=== PATIENT | female | born 1985 | race Caucasian/White ===

== ENCOUNTER 2022-04-08 17:46 | Emergency (ER) | payer SELFPAY ==
[2022-04-08] MEDS ORDERED: IBUPROFEN 200 MG TAB PO ONE (18:41)
--- NOTE | 2022-04-08 19:14 | RAD REPORT ---
EXAM DESCRIPTION: RAD - Humerus Right - 04/08/2022 7:02 pm CLINICAL HISTORY: Pain COMPARISON: None FINDINGS/IMPRESSION: No acute fracture. No malalignment. No significant focal degenerative changes.
--- NOTE | 2022-04-08 19:14 | RAD REPORT ---
EXAM DESCRIPTION: RAD - Shoulder Right 2 View - 04/08/2022 7:02 pm CLINICAL HISTORY: Pain COMPARISON: No comparisons FINDINGS/IMPRESSION: No acute fracture. No malalignment. No significant focal degenerative changes.
--- NOTE | 2022-04-08 19:20 | ER ---
Nurse's Notes [facility] Name: Grace Nava Age: 37 yrs Sex: Female : 1985 Arrival Date: 04/08/2022 Time: 17:47 Bed DX3 Private MD: Diagnosis: Other sprain of right shoulder joint;Contusion of right upper arm;Fall on same level from slipping, tripping and stumbling with subsequent striking against object Presentation: 04/08 18:04 Chief complaint: Patient states: i fell down 4 steps, they were slick hurt right arm ko1 and shoulder. Coronavirus screen: At this time, the client does not indicate any symptoms associated with coronavirus-19. Ebola Screen: No symptoms or risks identified at this time. Initial Sepsis Screen: Does the patient meet any 2 criteria? No. Patient's initial sepsis screen is negative. Does the patient have a suspected source of infection? No. Patient's initial sepsis screen is negative. Risk Assessment: Do you want to hurt yourself or someone else? Patient reports no desire to harm self or others. Onset of symptoms was April 08, 2022. 18:04 Method Of Arrival: Ambulatory ko1 18:04 Acuity: ANGELITO 3 ko1 Triage Assessment: 18:05 General: Appears in no apparent distress. uncomfortable, Behavior is calm, cooperative, ko1 appropriate for age. Pain: Complains of pain in right upper arm and shoulder. Musculoskeletal: Reports pain in right shoulder/arm. Injury Description: fall. Historical: - Allergies: 18:05 PENICILLINS; ko1 18:05 Zyrtec; ko1 - Immunization history:: Adult Immunizations up to date. - Social history:: Smoking status: Patient denies any tobacco usage or history of. Screenin:15 [facility] ED Fall Risk Assessment (Adult) History of falling in the last 3 months, ss including since admission No falls in past 3 months (0 pts). Abuse screen: Denies threats or abuse. Denies injuries from another. Nutritional screening: No deficits noted. Tuberculosis screening: No symptoms or risk factors identified. Never had TB. Assessment: 18:15 General: Appears in no apparent distress. comfortable, Behavior is calm, cooperative. ss Pain: Complains of pain in posterior aspect of right shoulder Pain currently is 5 out of 10 on a pain scale. Neuro: Level of Consciousness is awake, alert, obeys commands. Cardiovascular: Capillary refill < 3 seconds is brisk in bilateral fingers Patient's skin is warm and dry. Respiratory: Airway is patent Respiratory effort is even, unlabored, Respiratory pattern is regular, symmetrical. Derm: Skin is intact, is healthy with good turgor, Skin is pink, warm \T\ dry. normal. Musculoskeletal: Circulation, motion, and sensation intact. Range of motion:. Vital Signs: 18:04 BP 100 / 70; Pulse 93; Resp 18; Temp 97.7; Pulse Ox 98% ; Weight 63.5 kg; Height 5 ft. ko1 8 in. (172.72 cm); Pain 5/10; 18:04 Body Mass Index 21.29 (63.50 kg, 172.72 cm) ko1 ED Course: 17:47 Patient arrived in ED. am2 18:05 Triage completed. ko1 18:05 Arm band placed on left wrist. Patient placed in waiting room, Patient notified of wait ko1 time. 18:06 Katie Sanderson FNP-C is PHCP. snw 18:07 Los Santiago MD is Attending Physician. snw 18:15 Patient has correct armband on for positive identification. ss 18:15 No provider procedures requiring assistance completed. ss 19:00 Torrie Moreno RN is Primary Nurse. ss 19:04 Humerus Right XRAY In Process Unspecified. EDMS 19:04 Shoulder Right (2 View) XRAY In Process Unspecified. EDMS 19:11 Primary Nurse role handed off by Torrie Moreno RN mw2 19:13 Sling applied to right arm. ss 19:37 Patient did not have IV access during this emergency room visit. vc1 Administered Medications: 18:39 Drug: Motrin (ibuprofen) 600 mg Route: PO; ss 19:00 Follow up: Response: No adverse reaction ss Medication: 18:15 VIS not applicable for this client. ss Outcome: 19:19 Discharge ordered by . snw 19:36 Discharged to home ambulatory. vc1 19:36 Condition: good 19:36 Discharge instructions given to patient, Instructed on discharge instructions, follow up and referral plans. medication usage, Demonstrated understanding of instructions, follow-up care, medications, Prescriptions given X 2. 19:37 Patient left the ED. vc1 Signatures: Dispatcher [employer] EDMS Katie Sanderson, ANIMAL CAREGIVER-C ANIMAL CAREGIVER-Csnw Torrie Moreno, RN RN ss Palmira Barbour am2 Emmett Matamoros mw2 Paige Borjas RN RN vc1 Roma Colindres RN RN ko1
--- NOTE | 2022-04-08 19:20 | EDPHYS ---
Physician Documentation [facility] Name: Grace Nava Age: 37 yrs Sex: Female : 1985 Arrival Date: 04/08/2022 Time: 17:47 Bed DX3 Private MD: ED Physician Los Santiago HPI: 04/08 18:13 This 37 yrs old Female presents to ER via Ambulatory with complaints of Arm Injury, snw Fall Injury. 18:13 The patient or guardian complains of injury, tenderness. The complaints affect the snw posterior aspect of right shoulder and right tricep. Context: The problem was sustained outdoors, resulted from a fall, slipped down 4 stairs. Onset: The symptoms/episode began/occurred acutely. Severity of symptoms: At their worst the symptoms were moderate. The patient has experienced a previous episode, many years ago. no LOC, no lacerations. Historical: - Allergies: 18:05 PENICILLINS; ko1 18:05 Zyrtec; ko1 - Immunization history:: Adult Immunizations up to date. - Social history:: Smoking status: Patient denies any tobacco usage or history of. ROS: 18:15 Constitutional: Negative for fever, chills, and weight loss, Eyes: Negative for injury, snw pain, redness, and discharge, ENT: Negative for injury, pain, and discharge, Neck: Negative for injury, pain, and swelling, Cardiovascular: Negative for chest pain, palpitations, and edema, Respiratory: Negative for shortness of breath, cough, wheezing, and pleuritic chest pain, Back: Negative for injury and pain, : Negative for injury, bleeding, discharge, and swelling, Skin: Negative for injury, rash, and discoloration, Neuro: Negative for headache, weakness, numbness, tingling, and seizure. 18:15 MS/extremity: Positive for injury or acute deformity, decreased range of motion, pain, of the right bicep. Exam: 18:12 Constitutional: This is a well developed, well nourished patient who is awake, alert, snw and in no acute distress. Head/Face: Normocephalic, atraumatic. Eyes: Pupils equal round and reactive to light, extra-ocular motions intact. Lids and lashes normal. Conjunctiva and sclera are non-icteric and not injected. Cornea within normal limits. Periorbital areas with no swelling, redness, or edema. ENT: Nares patent. No nasal discharge, no septal abnormalities noted. Tympanic membranes are normal and external auditory canals are clear. Oropharynx with no redness, swelling, or masses, exudates, or evidence of obstruction, uvula midline. Mucous membranes moist. Neck: Trachea midline, no thyromegaly or masses palpated, and no cervical lymphadenopathy. Supple, full range of motion without nuchal rigidity, or vertebral point tenderness. No Meningismus. Chest/axilla: Normal chest wall appearance and motion. Nontender with no deformity. No lesions are appreciated. Cardiovascular: Regular rate and rhythm with a normal S1 and S2. No gallops, murmurs, or rubs. Normal PMI, no JVD. No pulse deficits. Respiratory: Lungs have equal breath sounds bilaterally, clear to auscultation and percussion. No rales, rhonchi or wheezes noted. No increased work of breathing, no retractions or nasal flaring. Abdomen/GI: Soft, non-tender, with normal bowel sounds. No distension or tympany. No guarding or rebound. No evidence of tenderness throughout. Back: No spinal tenderness. No costovertebral tenderness. Full range of motion. Skin: Warm, dry with normal turgor. Normal color with no rashes, no lesions, and no evidence of cellulitis. Neuro: Awake and alert, GCS 15, oriented to person, place, time, and situation. Cranial nerves II-XII grossly intact. Motor strength 5/5 in all extremities. Sensory grossly intact. Cerebellar exam normal. Normal gait. Psych: Awake, alert, with orientation to person, place and time. Behavior, mood, and affect are within normal limits. 18:12 Musculoskeletal/extremity: Extremities: grossly normal except: noted in the right humerus area and right midline shoulder: contusion, decreased ROM, tenderness, ROM: limited active range of motion due to pain, in the right shoulder, limited passive range of motion due to pain, Circulation is intact in all extremities. Sensation intact. Vital Signs: 18:04 BP 100 / 70; Pulse 93; Resp 18; Temp 97.7; Pulse Ox 98% ; Weight 63.5 kg; Height 5 ft. ko1 8 in. (172.72 cm); Pain 5/10; 18:04 Body Mass Index 21.29 (63.50 kg, 172.72 cm) ko1 MDM: 18:07 Patient medically screened. snw 19:03 Differential diagnosis: dislocation, closed fracture, contusion, tendonitis. Data snw reviewed: vital signs, nurses notes, radiologic studies, plain films. Independent interpretation of the following test(s) in the Emergency Department X-Ray: My interpretation is negative for acute fracture. 04/08 18:12 Order name: Humerus Right XRAY; Complete Time: 19:18 snw 04/08 18:12 Order name: Shoulder Right (2 View) XRAY; Complete Time: 19:18 snw 04/08 18:13 Order name: Sling; Complete Time: 19:00 snw Administered Medications: 18:39 Drug: Motrin (ibuprofen) 600 mg Route: PO; ss 19:00 Follow up: Response: No adverse reaction ss Disposition Summary: 04/08/22 19:19 Discharge Ordered Location: Home snw Condition: Stable snw Diagnosis - Other sprain of right shoulder joint snw - Contusion of right upper arm snw - Fall on same level from slipping, tripping and stumbling with subsequent striking snw against object Followup: snw - With: Emergency Department - When: As needed - Reason: Worsening of condition Followup: snw - With: Private Physician - When: 2 - 3 days - Reason: Recheck today's complaints, Continuance of care, Re-evaluation by your physician Discharge Instructions: - Discharge Summary Sheet snw - Contusion snw - Head Injury, Adult snw - Fall Prevention in the Home, Adult snw - Shoulder Pain snw - Shoulder Range of Motion Exercises snw - Shoulder Sprain snw - How to Use a Sling snw Forms: - Medication Reconciliation Form snw - Thank You Letter snw - Work release form snw - Antibiotic Education snw - Prescription Opioid Use snw Prescriptions: - Tramadol 50 mg Oral Tablet - take 1 tablet by ORAL route every 8 hours as needed; 12 tablet; Refills: 0, snw Product Selection Permitted - orphenadrine citrate 100 mg Oral Tablet Sustained Release - take 1 tablet by ORAL route 2 times per day As needed; 20 tablet; Refills: 0, snw Product Selection Permitted Signatures: Dispatcher [employer] Katie Stewart FNP-C SUPERVISOR TUMBLERS-Csnw Torrie Moreno, RN RN ss Roma Colindres, RN RN ko1
[2022-04-08 19:51] VITALS: BP 100/70; TEMP 97.7; O2SAT 98
== END 2022-04-08 19:37 | disposition home or self-care (01) ==
LOC: ER 17:46
DX: S43.491A Other sprain of right shoulder joint, initial encounter (principal); S40.021A Contusion of right upper arm, initial encounter; W01.10XA Fall on same level from slipping, tripping and stumbling with subsequent striking against unspecified object, initial encounter; Z88.0 Allergy status to penicillin; Z88.8 Allergy status to other drugs, medicaments and biological substances
CPT/HCPCS: 99284

== ENCOUNTER 2023-01-02 15:03 | Emergency (ER) | payer SELFPAY ==
--- NOTE | 2023-01-02 15:22 | EDPHYS ---
Physician Documentation [facility] Name: Grace Nava Age: 37 yrs Sex: Female : 1985 Arrival Date: 01/02/2023 Time: 15:03 Bed DX4 Private MD: ED Physician Los Santiago HPI: 01/02 15:20 This 37 yrs old Female presents to ER via Ambulatory with complaints of Suture Removal. [facility] 15:20 The patient has sutures on the Right hand. Previous treatment: the care was rendered at [facility] another emergency department, in [place], Treatment type: The patient's original treatment included sutures. Sutures/kandi progress: The patient has no c/o's. The wound is well-healing with no redness, swelling, discharge, or dehiscence reported. Patient presents for suture removal for laceration of right hand.. Historical: - Allergies: 15:20 PENICILLINS; ll1 15:20 Zyrtec; ll1 - Immunization history:: Adult Immunizations up to date. - Social history:: Smoking status: Patient denies any tobacco usage or history of. ROS: 15:20 Constitutional: Negative for fever, chills, and weight loss, Eyes: Negative for injury, [facility] pain, redness, and discharge, Cardiovascular: Negative for chest pain, palpitations, and edema, Respiratory: Negative for shortness of breath, cough, wheezing, and pleuritic chest pain, MS/Extremity: Negative for injury and deformity, Neuro: Negative for headache, weakness, numbness, tingling, and seizure, 15:20 Skin: Positive for Healing laceration of right hand, 15:20 All other systems are negative, Exam: 15:20 Constitutional: This is a well developed, well nourished patient who is awake, alert, [facility] and in no acute distress. Head/Face: Normocephalic, atraumatic. Cardiovascular: Regular rate and rhythm with a normal S1 and S2. No gallops, murmurs, or rubs. Normal PMI, no JVD. No pulse deficits. Respiratory: Lungs have equal breath sounds bilaterally, clear to auscultation and percussion. No rales, rhonchi or wheezes noted. No increased work of breathing, no retractions or nasal flaring. Abdomen/GI: Soft, non-tender, with normal bowel sounds. No distension or tympany. No guarding or rebound. No evidence of tenderness throughout. MS/ Extremity: Pulses equal, no cyanosis. Neurovascular intact. Full, normal range of motion. Neuro: Awake and alert, GCS 15, oriented to person, place, time, and situation. Motor strength 5/5 in all extremities. Sensory grossly intact. Normal gait. 15:20 Skin: Wound recheck: Suture laceration closure: the wound is healing well, the edges are well approximated, 9 intact sutures in the right palmar aspect of the hand extending to the fifth digit, Procedures: 15:26 Suture/Staple removal: Removed 9 sutures, from right hand, site appears well healed, jh7 dressed with band aid, Patient tolerated well. MDM: 15:08 Patient medically screened. [facility] 15:26 Data reviewed: vital signs, nurses notes. [facility] 15:26 Counseling: I had a detailed discussion with the patient and/or guardian regarding the [facility] historical points, exam findings, and any diagnostic results supporting the discharge/admit diagnosis, to return to the emergency department if symptoms worsen or persist or if there are any questions or concerns that arise at home. Response to treatment: the patient's symptoms have resolved after treatment. Administered Medications: No medications were administered Disposition Summary: 01/02/23 15:21 Discharge Ordered Notes: Location: Home [facility] Problem: new [facility] Symptoms: are resolved [facility] Condition: Stable [facility] Diagnosis - Encounter for removal of sutures [facility] Followup: [facility] - With: Private Physician - When: 2 - 3 days - Reason: Recheck today's complaints Discharge Instructions: - Discharge Summary Sheet [facility] - Suture Removal, Care After [facility] Forms: - Medication Reconciliation Form [facility] - Thank You Letter 7 - Patient Portal Instructions [facility] - Leadership Thank You Letter [facility] Signatures: Nba Rios, RN RN ll1 Deborah Butcher FNP FNP [facility]
--- NOTE | 2023-01-02 15:22 | ER ---
Nurse's Notes [facility] Name: Grace Nava Age: 37 yrs Sex: Female : 1985 Arrival Date: 01/02/2023 Time: 15:03 Bed DX4 Private MD: Diagnosis: Encounter for removal of sutures Presentation: 01/02 15:20 Chief complaint: Patient states: Here for suture removal. See [employer] note for further 1 details. Coronavirus screen: Client denies travel out of the [place] in the last 14 days. At this time, the client does not indicate any symptoms associated with coronavirus-19. Ebola Screen: Patient denies travel to an Ebola-affected area in the 21 days before illness onset. Initial Sepsis Screen: Does the patient meet any 2 criteria? No. Patient's initial sepsis screen is negative. Does the patient have a suspected source of infection? No. Patient's initial sepsis screen is negative. Risk Assessment: Do you want to hurt yourself or someone else? Patient reports no desire to harm self or others. Onset of symptoms is unknown. 15:20 Method Of Arrival: Ambulatory 1 15:20 Acuity: ANGELITO 5 ll1 Historical: - Allergies: 15:20 PENICILLINS; ll1 15:20 Zyrtec; 1 - Immunization history:: Adult Immunizations up to date. - Social history:: Smoking status: Patient denies any tobacco usage or history of. ED Course: 15:07 Patient arrived in ED. ts1 15:08 Deborah Butcher FNP [facility] 15:08 Los Santiago MD is Attending Physician. [facility] 15:21 Triage completed. ll1 15:21 Arm band placed on. 1 15:21 Patient did not have IV access during this emergency room visit. ll1 Administered Medications: No medications were administered Outcome: 15:21 Discharge ordered by . [facility] 15:21 Discharged to home ambulatory, 1 15:21 Condition: stable 15:21 Discharge instructions given to patient, Instructed on discharge instructions, follow up and referral plans. Demonstrated understanding of instructions, follow-up care, 15:23 Patient left the ED. 1 Signatures: Nba Rios RN RN [facility] Deborah Butcher FNP REGISTER REPAIRER [facility] Cordero, Maura, PAS PAS ts1
== END 2023-01-02 15:23 | disposition home or self-care (01) ==
LOC: ER 15:03
DX: Z48.02 Encounter for removal of sutures (principal)